=== PATIENT | male | born 1955 | race Caucasian/White ===

== ENCOUNTER 2017-10-23 09:04 | Emergency (ER) | payer BC ==
[~2017-10-23] VITALS: Ht 177.8 cm; Wt 108.0 kg
[2017-10-23 09:22] VITALS: BP_SYST 137
[2017-10-23] MEDS ORDERED: methylPREDNISolone SOD SUCC/PF 62.5 MG/ML VIAL IM ONE (11:15)
[2017-10-23 11:32] VITALS: BP_SYST 132
== END 2017-10-23 11:32 | disposition home or self-care (01) ==
LOC: SED 09:04
DX: G51.0 Bell's palsy (principal); I10 Essential (primary) hypertension; I48.91 Unspecified atrial fibrillation
CPT/HCPCS: 70450; 96372; 99284; J2930

== ENCOUNTER 2017-11-05 05:50 | Inpatient (IN) | payer BC ==
[~2017-11-05] VITALS: Ht 177.8 cm; Wt 108.0 kg
[2017-11-05] MEDS ORDERED: CELECOXIB 200 MG CAPSULE ONE (06:07)
[2017-11-05] MEDS ORDERED: GABAPENTIN 300 MG CAPSULE ONE (06:07)
[2017-11-05] MEDS ORDERED: oxyCODONE HCL 10 MG TAB.ER.12H PO ONE ×2 (06:09→06:30)
[2017-11-05] MEDS ORDERED: ACETAMINOPHEN 500 MG TABLET ONE (06:09)
[2017-11-05] MEDS ORDERED: TRANEXAMIC ACID 650 MG TABLET ONE (06:10)
[2017-11-05] MEDS ORDERED: CEFAZOLIN 2 GM IVPB PREMIX 50 ML IV ONE ×2 (06:15→06:30)
[2017-11-05] MEDS ORDERED: CELECOXIB 200 MG CAPSULE PO ONE (06:30)
[2017-11-05] MEDS ORDERED: NACL 0.9% 1,000 ML IV ONE (06:30)
[2017-11-05] MEDS ORDERED: ACETAMINOPHEN 500 MG TABLET PO ONE (06:30)
[2017-11-05] MEDS ORDERED: GABAPENTIN 300 MG CAPSULE PO ONE (06:30)
[2017-11-05] MEDS ORDERED: TRANEXAMIC ACID 650 MG TABLET PO ONE (06:30)
[2017-11-05] MEDS ORDERED: NIFE60TA7 PO (06:46)
[2017-11-05] MEDS ORDERED: VALS320T10 PO (06:46)
[2017-11-05] MEDS ORDERED: TAMS-11 PO (06:46)
[2017-11-05] MEDS ORDERED: HYDR25TA4 PO (06:46)
[2017-11-05] MEDS ORDERED: ROSU10TA PO (06:46)
[2017-11-05] MEDS ORDERED: POLYMYXIN 500,000/BACIT.10,000 UNITS in NS IRR 1 L IR ONE (07:06)
[2017-11-05] MEDS ORDERED: NALOXONE HCL 0.4 MG/ML AMP (NARCAN) IVP PRN (09:00)
[2017-11-05] MEDS ORDERED: DIPHENHYDRAMINE INJ 50 MG/ML VIAL IVP PRN (09:00)
[2017-11-05] MEDS ORDERED: MORPHINE SULFATE 10MG/10ML PF AMP SP SCH (09:00)
[2017-11-05] MEDS ORDERED: HYDROmorphone 1 MG INJ. 1 MG/ML AMPUL IVP PRN (09:00)
[2017-11-05] MEDS ORDERED: DIPHENHYDRAMINE INJ 50 MG/ML VIAL IM PRN (09:00)
[2017-11-05] MEDS ORDERED: NALBUPHINE HCL 10 MG/ML AMP IVP PRN (09:00)
[2017-11-05] MEDS ORDERED: ONDANSETRON HCL 4 MG/2 ML VIAL IVP PRN ×2 (09:00)
[2017-11-05] MEDS ORDERED: DIPHENHYDRAMINE HCL 50 MG CAPSULE PO PRN (09:45)
[2017-11-05] MEDS ORDERED: SENNOSIDES 8.6 MG TABLET PO PRN (09:45)
[2017-11-05] MEDS ORDERED: KETOROLAC TROMETHAMINE 15 MG VIAL IVP PRN (09:45)
[2017-11-05] MEDS ORDERED: MORPHINE 4 MG/ML INJ. SYRINGE IVP PRN (09:45)
[2017-11-05] MEDS ORDERED: oxyCODONE HCL 5 MG TABLET PO PRN ×2 (09:45)
[2017-11-05] MEDS ORDERED: ROPIVACAINE 0.2% 550 ML INJ SCH (09:45)
[2017-11-05] MEDS ORDERED: PROMETHAZINE HCL 25 MG/ML AMP IVP PRN (09:45)
[2017-11-05] MEDS ORDERED: ROPIVACAINE 0.2% 100 ML INJ SCH (10:50)
[2017-11-05] MEDS ORDERED: HYDROcodone/ACETAMIN 10-325 MG TAB PO PRN ×2 (11:00)
[2017-11-05] MEDS: D5LR 1,000 ML IV SCH (11:52)
[2017-11-05] MEDS ORDERED: MORPHINE SULFATE 10 MG/ML VIAL IVP PRN (11:55)
[2017-11-05 11:57] VITALS: BP_SYST 111
[2017-11-05] MEDS: CEFAZOLIN 1 GM IVPB PREMIX 50 ML IV SCH ×2 (12:23→20:48)
[2017-11-05] MEDS: ACETAMINOPHEN 500 MG TABLET PO SCH ×2 (15:19→20:50)
[2017-11-05 20:00] VITALS: BP_SYST 144
[2017-11-05] MEDS: GABAPENTIN 300 MG CAPSULE PO SCH (20:49)
[2017-11-05] MEDS: CELECOXIB 200 MG CAPSULE PO SCH (20:49)
[2017-11-06] VITALS (7 sets, daily range): BP systolic 130–141
[2017-11-06] MEDS: CEFAZOLIN 1 GM IVPB PREMIX 50 ML IV SCH (03:45)
[2017-11-06] MEDS: D5LR 1,000 ML IV SCH ×2 (05:45→06:14)
[2017-11-06 06:50] LABS: CALCIUM 8.5 mg/dL (8.4-11.0); CREATININE 0.75 mg/dL (0.55-1.30); POTASSIUM 3.6 mmol/L (3.5-5.1)
[2017-11-06 08:11] LABS: BASOPHILS % (AUTO) 0.3 % (0.0-2.0); EOSINOPHILS # (AUTO) 0.1 K/uL (0.0-0.4); EOSINOPHILS % (AUTO) 0.4 % (0.0-4.0); HEMATOCRIT 40.8 % (36-54); HEMOGLOBIN 13.9 g/dL (14.0-18.0); LYMPHOCYTES % (AUTO) 7.6 % (20.5-51.5); MEAN CORPUSCULAR HEMOGLOBIN 33 pg (27-31); MEAN CORPUSCULAR HGB CONC 34 % (32-36); MEAN CORPUSCULAR VOLUME 97 fL (79.0-98.0); MONOCYTES # (AUTO) 0.9 K/uL (0.0-1.0); NEUTROPHILS # (AUTO) 10.7 K/uL (1.8-7.7); NEUTROPHILS % (AUTO) 84.7 % (40.0-70.0); PLATELET COUNT (AUTO) 184 K/uL (130-430); RED BLOOD CELL COUNT(AUTO) 4.22 MIL/uL (4.2-6.2); RED CELL DISTRIBUTION WIDTH 12.9 % (9.0-15.0); WHITE BLOOD COUNT (AUTO) 12.7 K/uL (4.8-10.8)
[2017-11-06] MEDS: NIFEDIPINE 60 MG TABLET.SA (PROCARDIA XL 60 MG) PO SCH (08:37)
[2017-11-06] MEDS: TAMSULOSIN HCL 0.4 MG CAP PO SCH (08:37)
[2017-11-06] MEDS: ATORVASTATIN 10 MG TABLET PO SCH (08:37)
[2017-11-06] MEDS: ACETAMINOPHEN 500 MG TABLET PO SCH ×3 (08:38→20:31)
[2017-11-06] MEDS: VALSARTAN 160 MG TABLET (DIOVAN) PO SCH (08:38)
[2017-11-06] MEDS: HYDROCHLOROTHIAZIDE 25 MG TABLET (HCTZ) PO SCH (08:38)
[2017-11-06] MEDS ORDERED: ROSUVASTATIN CALCIUM 5 MG/TAB (CRESTOR) PO SCH (09:00)
[2017-11-06] MEDS: CELECOXIB 200 MG CAPSULE PO SCH ×2 (09:47→20:31)
[2017-11-06] MEDS: RIVAROXABAN 10 MG TABLET PO SCH (09:47)
[2017-11-06] MEDS: GABAPENTIN 300 MG CAPSULE PO SCH (20:31)
[2017-11-07] MEDS: D5LR 1,000 ML IV SCH (05:45)
[2017-11-07 06:54] LABS: BASOPHILS % (AUTO) 0.4 % (0.0-2.0); EOSINOPHILS # (AUTO) 0.2 K/uL (0.0-0.4); HEMATOCRIT 39.3 % (36-54); HEMOGLOBIN 13.4 g/dL (14.0-18.0); LYMPHOCYTES # (AUTO) 1.2 K/uL (1.0-5.5); LYMPHOCYTES % (AUTO) 13.4 % (20.5-51.5); MEAN CORPUSCULAR HEMOGLOBIN 33 pg (27-31); MEAN CORPUSCULAR HGB CONC 34 % (32-36); MEAN CORPUSCULAR VOLUME 97 fL (79.0-98.0); MONOCYTES # (AUTO) 1.3 K/uL (0.0-1.0); MONOCYTES % (AUTO) 14.5 % (1.7-9.3); NEUTROPHILS # (AUTO) 6.5 K/uL (1.8-7.7); NEUTROPHILS % (AUTO) 69.7 % (40.0-70.0); PLATELET COUNT (AUTO) 187 K/uL (130-430); RED BLOOD CELL COUNT(AUTO) 4.06 MIL/uL (4.2-6.2); RED CELL DISTRIBUTION WIDTH 12.9 % (9.0-15.0); WHITE BLOOD COUNT (AUTO) 9.2 K/uL (4.8-10.8)
[2017-11-07 07:13] LABS: CALCIUM 9.3 mg/dL (8.4-11.0); CREATININE 0.92 mg/dL (0.55-1.30); POTASSIUM 3.9 mmol/L (3.5-5.1)
[2017-11-07 08:00] VITALS: BP_SYST 152
[2017-11-07] MEDS: TAMSULOSIN HCL 0.4 MG CAP PO SCH (09:04)
[2017-11-07] MEDS: ACETAMINOPHEN 500 MG TABLET PO SCH (09:05)
[2017-11-07] MEDS: ATORVASTATIN 10 MG TABLET PO SCH (09:05)
[2017-11-07] MEDS: NIFEDIPINE 60 MG TABLET.SA (PROCARDIA XL 60 MG) PO SCH (09:05)
[2017-11-07] MEDS: HYDROCHLOROTHIAZIDE 25 MG TABLET (HCTZ) PO SCH (09:06)
[2017-11-07] MEDS: RIVAROXABAN 10 MG TABLET PO SCH (09:06)
[2017-11-07] MEDS: VALSARTAN 160 MG TABLET (DIOVAN) PO SCH (09:06)
[2017-11-07] MEDS: CELECOXIB 200 MG CAPSULE PO SCH (09:06)
[2017-11-07] MEDS ORDERED: HYDROcodone/ACETAMIN 7.5-325 MG TAB PO ONE (10:30)
[2017-11-07 10:55] VITALS: BP_SYST 139
[2017-11-07 11:32] VITALS: BP_SYST 117
[2017-11-07 12:00] VITALS: BP_SYST 139
[2017-11-08] MEDS ORDERED: ONDANSETRON HCL 4 MG/2 ML VIAL IVP PRN (09:45)
== END 2017-11-07 12:45 | disposition home health service (06) | DRG 470 ==
LOC: SMU 05:50 → STU 11:05
PROVIDERS: ADMIT Orthopaedic Surgery; ATTEND Orthopaedic Surgery
PROC: 3E0T3BZ Introduction of Anesthetic Agent into Peripheral Nerves and Plexi, Percutaneous Approach (ICD-10-PCS; 2017-11-05)
PROC: 0SRD069 Replacement of Left Knee Joint with Oxidized Zirconium on Polyethylene Synthetic Substitute, Cemented, Open Approach (ICD-10-PCS; principal; 2017-11-05 07:30)
DX: M17.12 Unilateral primary osteoarthritis, left knee (principal); I48.91 Unspecified atrial fibrillation; I10 Essential (primary) hypertension; Z79.899 Other long term (current) drug therapy; E66.3 Overweight; Z68.34 Body mass index [BMI] 34.0-34.9, adult
CPT/HCPCS: 36415; 80048; 85025; 87081; 88305; 88311; 97039; 97110-GP; 97116-GP; 97530-GP; C1713; C1776; J0690; J2274; J2795; J7120

== ENCOUNTER 2018-05-09 09:24 | Emergency (ER) | payer BC ==
[~2018-05-09] VITALS: Ht 180.3 cm; Wt 104.3 kg
[2018-05-09 09:24] VITALS: BP_SYST 128
[~2018-05-09 09:24] MED LIST: HYDR25TA4 PO; NIFE60TA7 PO; ROSU10TA PO; TAMS-11 PO; VALS320T10 PO
[2018-05-09 10:09] LABS: BILIRUBIN,URINE NEGATIVE (NEGATIVE); BLOOD, URINE NEGATIVE (NEGATIVE); CLARITY/URINE CLEAR (CLEAR); COLOR,URINE YELLOW (YELLOW); GLUCOSE,URINE NEGATIVE (NEGATIVE); KETONES,URINE NEGATIVE (NEGATIVE); LEUKOCYTE ESTERASE ,URINE NEGATIVE (NEGATIVE); NITRITE, URINE NEGATIVE (NEGATIVE); PH,URINE 6.5 (5.0-8.0); PROTEIN URINE NEGATIVE (NEGATIVE); UROBILINOGEN,URINE 0.2 (0.2-1.0)
[2018-05-09] MEDS ORDERED: IBUPROFEN 600 MG TABLET PO ONE (12:15)
[2018-05-09 12:41] VITALS: BP_SYST 125
== END 2018-05-09 12:42 | disposition home or self-care (01) ==
LOC: SED 09:24
DX: N45.1 Epididymitis (principal); I48.91 Unspecified atrial fibrillation; I10 Essential (primary) hypertension; Z79.899 Other long term (current) drug therapy
CPT/HCPCS: 76870-TC; 81003; 99285

== ENCOUNTER 2023-07-21 06:20 | Inpatient (IN) | payer BC, OTHER ==
[~2023-07-21] VITALS: Ht 177.8 cm; Wt 109.8 kg
[~2023-07-21 06:20] MED LIST changes: +NIFE-129 PO; -NIFE60TA7 PO; -ROSU10TA PO; +ROSU10TA2 PO; -VALS320T10 PO; +VALS320T2 PO
[2023-07-21 06:43] VITALS: BP_SYST 164; PULSE 101; RESP 16; TEMP 98; O2SAT 98
[2023-07-21] MEDS ORDERED: ONDANSETRON HCL 4 MG/2 ML VIAL IVP ONE (06:45)
[2023-07-21] MEDS ORDERED: MORPHINE 4 MG INJ. 4 MG/ML VIAL IVP ONE (06:45)
[2023-07-21] MEDS ORDERED: KETOROLAC TROMETHAMINE 30 MG VIAL IVP ONE (06:45)
[2023-07-21 07:16] LABS: CALCIUM 9.2 mg/dL (8.4-11.0); CREATININE 1.01 mg/dL (0.55-1.30); POTASSIUM 3.9 mmol/L (3.5-5.1)
[2023-07-21] MEDS ORDERED: DOXY100C5 PO (08:13)
[2023-07-21 08:32] LABS: BASOPHILS # (AUTO) 0.1 K/uL (0.0-0.2); BASOPHILS % (AUTO) 0.8 % (0.0-2.0); EOSINOPHILS # (AUTO) 0.1 K/uL (0.0-0.4); EOSINOPHILS % (AUTO) 0.4 % (0.0-4.0); HEMATOCRIT 40.6 % (36-54); HEMOGLOBIN 13.2 g/dL (14.0-18.0); LYMPHOCYTES # (AUTO) 1.3 K/uL (1.0-5.5); LYMPHOCYTES % (AUTO) 7.6 % (20.5-51.5); MEAN CORPUSCULAR HEMOGLOBIN 32 pg (27-31); MEAN CORPUSCULAR HGB CONC 33 % (32-36); MEAN CORPUSCULAR VOLUME 98 fL (79.0-98.0); MONOCYTES % (AUTO) 11.4 % (1.7-9.3); NEUTROPHILS # (AUTO) 14.1 K/uL (1.8-7.7); NEUTROPHILS % (AUTO) 79.8 % (40.0-70.0); PLATELET COUNT (AUTO) 386 K/uL (130-430); RED BLOOD CELL COUNT(AUTO) 4.15 MIL/uL (4.2-6.2); RED CELL DISTRIBUTION WIDTH 12.8 % (9.0-15.0); WHITE BLOOD COUNT (AUTO) 17.6 K/uL (4.8-10.8)
[2023-07-21 08:59] LABS: BILIRUBIN,URINE NEGATIVE (NEGATIVE); BLOOD, URINE 3+ (NEGATIVE); CLARITY/URINE Slightly Cloudy (CLEAR); COLOR,URINE YELLOW (YELLOW); GLUCOSE,URINE NEGATIVE (NEGATIVE); KETONES,URINE NEGATIVE (NEGATIVE); LEUKOCYTE ESTERASE ,URINE 3+ (NEGATIVE); NITRITE, URINE POSITIVE (NEGATIVE); PROTEIN URINE 3+ (NEGATIVE); UROBILINOGEN,URINE 0.2 (0.2-1.0)
[2023-07-21 09:22] LABS: BACTERIA,URINE MANY /HPF (None Seen); RBC,URINE 20-50 /HPF (0-3); WBC,URINE >100 /HPF (0-3)
[2023-07-21 09:23] LABS: CALCIUM OXALATE CRYSTALS,UR None Seen /HPF (None Seen); CALCIUM PHOSPHATE CRYSTALS,UR None Seen /HPF (None Seen); COARSE GRANULAR CASTS,URINE None Seen /LPF (None Seen); FINE GRANULAR CASTS,URINE None Seen /LPF (None Seen); HYALINE CASTS, URINE None Seen /LPF (None Seen); MUCUS,URINE 3+ /LPF (None Seen); OTHER CASTS, URINE None Seen /LPF (None Seen); OTHER CRYSTALS,URINE None Seen /HPF (None Seen); TRICHOMONAS,URINE None Seen /HPF (None Seen); TRIPLE PHOSPHATE CRYSTAL,UR None Seen /HPF (None Seen); URIC ACID CRYSTALS,URINE None Seen /HPF (None Seen); URINE AMORPHOUS PHOSPHATES None Seen /HPF (None Seen); URINE AMORPHOUS URATE None Seen /HPF (None Seen); WAXY CASTS,URINE None Seen /LPF (None Seen); YEAST,URINE Moderate /HPF (None Seen)
[2023-07-21] MEDS ORDERED: RIVA20TA PO (10:06)
[2023-07-21] MEDS ORDERED: LOSA1TAB15 PO (10:11)
[2023-07-21] MEDS ORDERED: ROSU5TAB13 PO (10:11)
[2023-07-21] MEDS ORDERED: METO-540 PO (10:11)
[2023-07-21] MEDS ORDERED: LORA10TA7 PO (10:11)
[2023-07-21] MEDS: NACL 0.9% 1,000 ML IV SCH ×3 (10:19→17:10)
[2023-07-21] MEDS ORDERED: METOPROLOL TARTRATE 25 MG TABLET PO ONE (11:30)
[2023-07-21] MEDS ORDERED: ACETAMINOPHEN 500 MG TABLET ONE (15:23)
[2023-07-21] MEDS ORDERED: ACETAMINOPHEN 500 MG TABLET PO ONE (15:30)
[2023-07-21] MEDS ORDERED: MORPHINE 2 MG/ML INJ. SYRINGE IVP PRN (15:45)
[2023-07-21] MEDS ORDERED: NALOXONE HCL 0.4 MG/ML AMP (NARCAN) IVP PRN (15:45)
[2023-07-21 16:34] VITALS: BP_SYST 110; PULSE 138; RESP 18; TEMP 98.7; O2SAT 95
[2023-07-21] MEDS ORDERED: LOSARTAN POTASSIUM 50 MG TABLET (COZAAR) PO ONE (17:00)
[2023-07-21] MEDS ORDERED: ATORVASTATIN 20 MG TABLET PO ONE (17:00)
[2023-07-21] MEDS ORDERED: TAMSULOSIN HCL 0.4 MG CAP PO ONE (17:00)
[2023-07-21] MEDS: RIVAROXABAN 10 MG TABLET PO SCH ×2 (17:18→17:23)
[2023-07-21 19:50] VITALS: BP_SYST 115; PULSE 128; RESP 20; TEMP 98.1; O2SAT 97
[2023-07-21 20:06] VITALS: BP_SYST 115; PULSE 128; RESP 20; TEMP 98.1; O2SAT 97
[2023-07-21] MEDS: METOPROLOL TARTRATE 25 MG TABLET PO SCH (20:38)
[2023-07-22] MEDS: HYDROcodone/ACETAMIN 7.5-325 MG TAB PO PRN (00:18)
[2023-07-22 01:48] VITALS: BP_SYST 116; PULSE 104; RESP 18; TEMP 98.9; O2SAT 95
[2023-07-22 08:05] VITALS: BP_SYST 117; PULSE 125; RESP 20; TEMP 98; O2SAT 95
[2023-07-22] MEDS: TAMSULOSIN HCL 0.4 MG CAP PO SCH (09:43)
[2023-07-22] MEDS: METOPROLOL TARTRATE 25 MG TABLET PO SCH ×2 (09:44→20:31)
[2023-07-22] MEDS: ATORVASTATIN 20 MG TABLET PO SCH (09:44)
[2023-07-22] MEDS: LOSARTAN POTASSIUM 50 MG TABLET (COZAAR) PO SCH (09:45)
[2023-07-22 11:55] VITALS: BP_SYST 112; PULSE 100; RESP 18; TEMP 100.4; O2SAT 97
[2023-07-22] MEDS: ACETAMINOPHEN 325 MG TABLET PO PRN ×2 (12:04→21:44)
[2023-07-22 17:10] VITALS: BP_SYST 124; PULSE 94; RESP 16; TEMP 98.4; O2SAT 98
[2023-07-22] MEDS: RIVAROXABAN 10 MG TABLET PO SCH (17:46)
[2023-07-22] MEDS: NACL 0.9% 1,000 ML IV SCH (17:50)
[2023-07-22 19:59] VITALS: BP_SYST 126; PULSE 112; RESP 18; TEMP 98.2; O2SAT 98
[2023-07-23 00:23] VITALS: BP_SYST 96; PULSE 92; RESP 18; TEMP 97.2; O2SAT 97
[2023-07-23] MEDS: NACL 0.9% 1,000 ML IV SCH ×3 (02:06→21:23)
[2023-07-23 08:10] LABS: BASOPHILS # (AUTO) 0.1 K/uL (0.0-0.2); BASOPHILS % (AUTO) 0.4 % (0.0-2.0); EOSINOPHILS # (AUTO) 0.2 K/uL (0.0-0.4); HEMATOCRIT 34.6 % (36-54); HEMOGLOBIN 11.4 g/dL (14.0-18.0); LYMPHOCYTES # (AUTO) 1.1 K/uL (1.0-5.5); MEAN CORPUSCULAR HEMOGLOBIN 32 pg (27-31); MEAN CORPUSCULAR HGB CONC 33 % (32-36); MEAN CORPUSCULAR VOLUME 98 fL (79.0-98.0); MONOCYTES # (AUTO) 1.6 K/uL (0.0-1.0); MONOCYTES % (AUTO) 7.3 % (1.7-9.3); NEUTROPHILS # (AUTO) 18.7 K/uL (1.8-7.7); PLATELET COUNT (AUTO) 282 K/uL (130-430); RED BLOOD CELL COUNT(AUTO) 3.54 MIL/uL (4.2-6.2); RED CELL DISTRIBUTION WIDTH 13.2 % (9.0-15.0); WHITE BLOOD COUNT (AUTO) 21.7 K/uL (4.8-10.8)
[2023-07-23 08:22] LABS: ALBUMIN 2.2 g/dL (3.4-4.8); CREATININE 0.92 mg/dL (0.55-1.30); POTASSIUM 3.9 mmol/L (3.5-5.1); TOTAL BILIRUBIN 0.5 mg/dL (0.0-1.0); TOTAL PROTEIN, SERUM 6.2 g/dL (6.4-8.3)
[2023-07-23 08:40] VITALS: BP_SYST 134; PULSE 100; RESP 18; TEMP 97.8; O2SAT 97
[2023-07-23] MEDS: LOSARTAN POTASSIUM 50 MG TABLET (COZAAR) PO SCH (09:24)
[2023-07-23] MEDS: TAMSULOSIN HCL 0.4 MG CAP PO SCH (09:24)
[2023-07-23] MEDS: METOPROLOL TARTRATE 25 MG TABLET PO SCH ×2 (09:25→21:22)
[2023-07-23] MEDS: ATORVASTATIN 20 MG TABLET PO SCH (09:25)
[2023-07-23 10:51] LABS: NEUTROPHILS % (AUTO) 86.3 % (40.0-70.0)
[2023-07-23 12:03] VITALS: BP_SYST 135; PULSE 98; RESP 18; TEMP 98.7; O2SAT 96
[2023-07-23 17:14] VITALS: BP_SYST 150; PULSE 98; RESP 18; TEMP 99.2
[2023-07-23] MEDS: ACETAMINOPHEN 325 MG TABLET PO PRN (17:44)
[2023-07-23] MEDS: RIVAROXABAN 10 MG TABLET PO SCH (17:46)
[2023-07-23 20:00] VITALS: BP_SYST 128; BP_SYST 133; PULSE 96; RESP 18; TEMP 98.4; O2SAT 98
[2023-07-24 00:05] VITALS: BP_SYST 128; RESP 18; TEMP 97.5; O2SAT 98
[2023-07-24] MEDS: NACL 0.9% 1,000 ML IV SCH (06:22)
[2023-07-24 06:35] LABS: ERYTHROCYTE SEDIMENTATION RATE 41 MM/HR (0-15)
[2023-07-24 06:38] LABS: BASOPHILS # (AUTO) 0.1 K/uL (0.0-0.2); BASOPHILS % (AUTO) 0.7 % (0.0-2.0); EOSINOPHILS # (AUTO) 0.2 K/uL (0.0-0.4); EOSINOPHILS % (AUTO) 1.4 % (0.0-4.0); HEMATOCRIT 33.4 % (36-54); HEMOGLOBIN 11.2 g/dL (14.0-18.0); LYMPHOCYTES % (AUTO) 7.3 % (20.5-51.5); MEAN CORPUSCULAR HEMOGLOBIN 32 pg (27-31); MEAN CORPUSCULAR HGB CONC 34 % (32-36); MEAN CORPUSCULAR VOLUME 97 fL (79.0-98.0); MONOCYTES # (AUTO) 1.3 K/uL (0.0-1.0); MONOCYTES % (AUTO) 9.1 % (1.7-9.3); NEUTROPHILS # (AUTO) 11.5 K/uL (1.8-7.7); NEUTROPHILS % (AUTO) 81.5 % (40.0-70.0); PLATELET COUNT (AUTO) 303 K/uL (130-430); RED BLOOD CELL COUNT(AUTO) 3.45 MIL/uL (4.2-6.2); RED CELL DISTRIBUTION WIDTH 13.2 % (9.0-15.0); WHITE BLOOD COUNT (AUTO) 14.2 K/uL (4.8-10.8)
[2023-07-24 07:07] LABS: CALCIUM 8.3 mg/dL (8.4-11.0); CREATININE 0.87 mg/dL (0.55-1.30); POTASSIUM 4.4 mmol/L (3.5-5.1)
[2023-07-24 08:00] VITALS: BP_SYST 163; PULSE 108; RESP 20; TEMP 99.3; O2SAT 98
[2023-07-24] MEDS: TAMSULOSIN HCL 0.4 MG CAP PO SCH (09:01)
[2023-07-24] MEDS: LOSARTAN POTASSIUM 50 MG TABLET (COZAAR) PO SCH (09:02)
[2023-07-24] MEDS: METOPROLOL TARTRATE 25 MG TABLET PO SCH ×2 (09:02→21:09)
[2023-07-24] MEDS: ATORVASTATIN 20 MG TABLET PO SCH (09:03)
[2023-07-24 10:32] VITALS: O2SAT 95
[2023-07-24 12:13] VITALS: BP_SYST 146; PULSE 103; RESP 20; TEMP 98.3; O2SAT 99
[2023-07-24] MEDS ORDERED: HYDROCHLOROTHIAZIDE 25 MG TABLET (HCTZ) PO ONE (13:15)
[2023-07-24] MEDS ORDERED: NIFEdipine 30 MG TAB.ER.24 PO ONE (13:15)
[2023-07-24] MEDS ORDERED: LORATADINE 10 MG TABLET PO ONE (13:15)
[2023-07-24] MEDS: HYDROcodone/ACETAMIN 7.5-325 MG TAB PO PRN ×2 (14:21→21:11)
[2023-07-24 16:30] VITALS: BP_SYST 151; PULSE 96; RESP 20; TEMP 98.6; O2SAT 99
[2023-07-24] MEDS: RIVAROXABAN 10 MG TABLET PO SCH (18:47)
[2023-07-24 20:00] VITALS: O2SAT 99
[2023-07-24] MEDS: NORMAL SALINE 5 ML DISP.SYRIN IVF SCH (21:14)
[2023-07-25 02:09] VITALS: BP_SYST 109; PULSE 87; RESP 18; TEMP 97.4; O2SAT 94
[2023-07-25] MEDS: NORMAL SALINE 5 ML DISP.SYRIN IVF SCH (06:51)
[2023-07-25 07:52] LABS: BASOPHILS # (AUTO) 0.1 K/uL (0.0-0.2); BASOPHILS % (AUTO) 0.5 % (0.0-2.0); EOSINOPHILS # (AUTO) 0.3 K/uL (0.0-0.4); EOSINOPHILS % (AUTO) 2.8 % (0.0-4.0); HEMATOCRIT 33.7 % (36-54); HEMOGLOBIN 11.4 g/dL (14.0-18.0); LYMPHOCYTES # (AUTO) 1.2 K/uL (1.0-5.5); LYMPHOCYTES % (AUTO) 10.7 % (20.5-51.5); MEAN CORPUSCULAR HEMOGLOBIN 33 pg (27-31); MEAN CORPUSCULAR HGB CONC 34 % (32-36); MEAN CORPUSCULAR VOLUME 96 fL (79.0-98.0); MONOCYTES # (AUTO) 1.2 K/uL (0.0-1.0); MONOCYTES % (AUTO) 10.6 % (1.7-9.3); NEUTROPHILS # (AUTO) 8.3 K/uL (1.8-7.7); NEUTROPHILS % (AUTO) 75.4 % (40.0-70.0); PLATELET COUNT (AUTO) 324 K/uL (130-430); RED BLOOD CELL COUNT(AUTO) 3.49 MIL/uL (4.2-6.2); RED CELL DISTRIBUTION WIDTH 12.7 % (9.0-15.0)
[2023-07-25 08:00] VITALS: BP_SYST 112; PULSE 94; RESP 16; TEMP 97.4; O2SAT 97
[2023-07-25 08:03] LABS: ALBUMIN 2.3 g/dL (3.4-4.8); CALCIUM 7.8 mg/dL (8.4-11.0); CREATININE 0.73 mg/dL (0.55-1.30); POTASSIUM 3.1 mmol/L (3.5-5.1); TOTAL BILIRUBIN 0.4 mg/dL (0.0-1.0); TOTAL PROTEIN, SERUM 6.4 g/dL (6.4-8.3)
[2023-07-25 08:16] LABS: ERYTHROCYTE SEDIMENTATION RATE 83 MM/HR (0-15)
[2023-07-25] MEDS ORDERED: NIFEdipine 30 MG TAB.ER.24 PO SCH (09:00)
[2023-07-25] MEDS ORDERED: LORATADINE 10 MG TABLET PO SCH (09:00)
[2023-07-25] MEDS ORDERED: HYDROCHLOROTHIAZIDE 25 MG TABLET (HCTZ) PO SCH (09:00)
[2023-07-25] MEDS: TAMSULOSIN HCL 0.4 MG CAP PO SCH (09:03)
[2023-07-25] MEDS: METOPROLOL TARTRATE 25 MG TABLET PO SCH (09:05)
[2023-07-25] MEDS: ATORVASTATIN 20 MG TABLET PO SCH (09:06)
[2023-07-25] MEDS: LOSARTAN POTASSIUM 50 MG TABLET (COZAAR) PO SCH (09:07)
[2023-07-25] MEDS: ACETAMINOPHEN 325 MG TABLET PO PRN (09:07)
[2023-07-25] MEDS ORDERED: LEVO-62 PO (10:40)
[2023-07-25] MEDS ORDERED: RIVA10TA PO (10:40)
[2023-07-25 12:00] VITALS: BP_SYST 111; PULSE 86; RESP 18; TEMP 97.6; O2SAT 100
[2023-07-25 13:16] VITALS: BP_SYST 96; PULSE 76; RESP 16; TEMP 98.1; O2SAT 97
== END 2023-07-25 14:30 | disposition home health service (06) | DRG 871 ==
LOC: SED 06:20 → STU 09:47 → SMU 07-25 06:54
PROVIDERS: ADMIT Family Medicine; ATTEND Preventive Medicine Preventive Medicine/Occupational Environmental Medicine
DX: A41.9 Sepsis, unspecified organism (principal); E43 Unspecified severe protein-calorie malnutrition; I48.19 Other persistent atrial fibrillation; N39.0 Urinary tract infection, site not specified; E87.1 Hypo-osmolality and hyponatremia; B96.5 Pseudomonas (aeruginosa) (mallei) (pseudomallei) as the cause of diseases classified elsewhere; N43.3 Hydrocele, unspecified; E11.65 Type 2 diabetes mellitus with hyperglycemia; D64.9 Anemia, unspecified; E88.09 Other disorders of plasma-protein metabolism, not elsewhere classified; E83.52 Hypercalcemia; N45.2 Orchitis; N40.1 Benign prostatic hyperplasia with lower urinary tract symptoms; E83.51 Hypocalcemia; K76.0 Fatty (change of) liver, not elsewhere classified; I10 Essential (primary) hypertension; E78.5 Hyperlipidemia, unspecified; N36.8 Other specified disorders of urethra; E87.6 Hypokalemia; E66.01 Morbid (severe) obesity due to excess calories; Z68.34 Body mass index [BMI] 34.0-34.9, adult; Z90.79 Acquired absence of other genital organ(s); Z79.01 Long term (current) use of anticoagulants
CPT/HCPCS: 36415; 74170-TC; 76376; 76770; 76870-TC; 80048; 80053; 81000; 85025; 85651-TC; 87040; 87086; 96374; 96375; 99285; G0378; J1956; J2270; J2405; Q9967

== ENCOUNTER 2023-09-10 08:48 | Day surgery (SDC) | payer OTHER ==
[~2023-09-10] VITALS: Ht 177.8 cm; Wt 104.3 kg
[~2023-09-10 08:48] MED LIST changes: -HYDR25TA4 PO; +LEVO-62 PO; +LORA10TA7 PO; +LOSA1TAB15 PO; +METO-540 PO; +RIVA10TA PO; +RIVA20TA PO; -ROSU10TA2 PO; +ROSU5TAB13 PO; -VALS320T2 PO; +ceFAZolin SODIUM 2 GM in D5W 100 ML IV ONE
[2023-09-10] MEDS ORDERED: MIDAZOLAM HCL 2 MG/2 ML VIAL (VERSED) ONE (12:13)
[2023-09-10] MEDS ORDERED: fentaNYL CITRATE/PF 100 MCG/2 ML AMP ONE (12:13)
[2023-09-10] MEDS ORDERED: ACETAMINOPHEN I.V. 1000 MG 100 ML IV ONE (12:13)
[2023-09-10] MEDS ORDERED: NS IRRIG SOLN 1000 ML IR ONE (12:17)
[2023-09-10] MEDS ORDERED: SEVOFLURANE 15 MIN GAS INH ONE (12:17)
[2023-09-10] MEDS ORDERED: DEXAMETHASONE SOD PHOSPHATE 4 MG/ML VIAL ONE (12:17)
[2023-09-10] MEDS ORDERED: BUPIVACAINE /PF 0.25% 30 ML VIAL INJ ONE (12:17)
[2023-09-10] MEDS ORDERED: ONDANSETRON HCL 4 MG/2 ML VIAL ONE (12:17)
[2023-09-10] MEDS ORDERED: PROPOFOL 200MG/ 20ML VIAL (DIPRIVAN) IV ONE (12:17)
[2023-09-10] MEDS ORDERED: WATER FOR IRRIGATION,STERILE 1,000 ML IRRIG.SOLN IR ONE (12:17)
[2023-09-10] MEDS ORDERED: LIDOCAINE 2%, 20 ML MDV ONE (12:17)
[2023-09-10] MEDS ORDERED: PHENYLEPHRINE HCL 10 MG/ML VIAL (NEOSYNEPHRINE) ONE (12:17)
[2023-09-10] MEDS ORDERED: ONDANSETRON HCL 4 MG/2 ML VIAL IVP PRN (13:00)
[2023-09-10] MEDS ORDERED: fentaNYL CITRATE/PF 100 MCG/2 ML AMP IVP PRN (13:00)
[2023-09-10] MEDS ORDERED: LR 1,000 ML IV ONE (13:00)
[2023-09-10] MEDS ORDERED: HYDROmorphone 1 MG/ML INJ. CARTRIDGE IVP PRN ×2 (13:00)
[2023-09-10 13:02] VITALS: O2SAT 98
[2023-09-10] MEDS ORDERED: D5/0.45 NS 1,000 ML IV SCH (13:15)
[2023-09-10] MEDS ORDERED: HYDROcodone/ACETAMIN 5-325 MG TAB (NORCO/ VICODIN) PO PRN ×2 (13:15)
[2023-09-10 15:55] VITALS: BP_SYST 116; PULSE 67; RESP 17
== END 2023-09-10 15:50 | disposition home or self-care (01) ==
LOC: SDS 08:48 → SMU 08:50 → EDSTATUS 09:00 → SDS 15:50
PROVIDERS: ATTEND Colon & Rectal Surgery
DX: K60.3 Anal fistula (principal); I10 Essential (primary) hypertension; I48.91 Unspecified atrial fibrillation; Z79.01 Long term (current) use of anticoagulants; E78.5 Hyperlipidemia, unspecified; E11.9 Type 2 diabetes mellitus without complications; E66.01 Morbid (severe) obesity due to excess calories; Z68.33 Body mass index [BMI] 33.0-33.9, adult; Z79.899 Other long term (current) drug therapy
CPT/HCPCS: 87081; 46275; J3490; J1100; J2001; J3465; J2405; J2370; J2704; J3010; J7060; J0131